=== PATIENT | male | born 1965 | race American Indian/Alaskan Native ===

== ENCOUNTER 2020-08-20 12:28 | Outpatient (CLI) | payer OTHER ==
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
== END 2020-08-20 12:29 | disposition home or self-care (01) ==
LOC: XRAY 12:28
PROVIDERS: ATTEND Internal Medicine
DX: M79.651 Pain in right thigh (principal); M79.652 Pain in left thigh